=== PATIENT | female | born 1940 ===

== ENCOUNTER 2020-04-14 13:44 | Emergency (ER) | payer OTHER, SELFPAY ==
[2020-04-14 13:45] VITALS: BP 111/66; PULSE 70; RESP 18; TEMP 36.7; O2SAT 96; BMI 24.2
--- NOTE | 2020-04-14 13:46 | CT_ITS ---
WS: [id number] CT ABDOMEN AND PELVIS WITH CONTRAST HISTORY: abd pain TECHNIQUE: Imaging performed of the abdomen and pelvis with IV contrast. Single phase imaging of the abdomen. Coronal and sagittal reformats are submitted. All CT scans at [facility] use at least one of these dose optimization techniques: automated exposure control; mA and/or kV adjustment per patient size (includes targeted exams where dose is matched to clinical indication); or iterativ e reconstruction. IV CONTRAST: Omnipaque 300; 95 mL IV. Oral contrast: No DLP: 791.25 mGy.cm COMPARISON: None available. Lower thorax: Lung bases are clear. Mild enlargement the heart. Small hiatal hernia. Liver/biliary system: Normal size liver. Lobulated cyst in the RIGHT lobe maximum diameter of 17 mm. There are a few additional smaller hypodensities which are probably cysts also. There are additional small cysts which are indeterminant. Mild biliary duct dilatation. Gallbladder: Present but limited visualization due to motion. Pancreas: Atrophied pancreas and poorly visualized. Common bile duct at the pancreatic head measures 6 mm. Spleen: Normal. Adrenal glands: Normal. Right kidney: No renal obstruction. There are multiple stones within the renal pelvis. The largest me asures 1.2 cm in the mid kidney. Left kidney: No hydronephrosis. Multiple nonobstructing stones in the lower pole. Aorta: Mild atherosclerosis. Lymphadenopathy: None. Free fluid: No free fluid. GI tract: Diffuse fecal retention and constipation. No obstructive pattern. Abdominal wall: Unremarkable abdominal wall. No hernia. Pelvis: Well-distended urinary bladder. Uterus is not identified. Bones: Large sacral cysts causing erosion of the foramina and widening. Diffuse osteopenia. CT/CT abdomen pelvis w con* [id number] IMPRESSION: 1. Study is limited by motion artifact and artifact through the abdomen by the patient's arms. 2. Mild intrahepatic duct dilatation of uncertain etiology. No pancreatic head mass identified. 3. Bilateral nonobstructing renal calcifications. 4. Atherosclerosis aorta. 5. Cardiomegaly. 6. Constipation with no free air or ascites.
--- NOTE | 2020-04-14 13:46 | ECG_ITS ---
Measurements Intervals [place] Rate: 68 P: 64 [place]: 158 QRS: 4 QRSD: 86 T: 54 QT: 398 QTc: 424 SINUS RHYTHM LOW QRS VOLTAGE IN PRECORDIAL LEADS [QRS DEFLECTION < 1.0 mV IN CHEST LEADS] POSSIBLE ANTERIOR MYOCARDIAL INFARCTION , OF INDETERMINATE AGE [30 ms Q WAVE IN V3/V4, OR R < 0.2 mV IN V4] Compared to ECG 12/01/2017 02:26:53 Low QRS voltage now present Myocardial infarct finding still present Electronically Signed On 04-14-2020 19:29:01 CDT by Jaime Stearns M.D. [email or web address]
--- NOTE | 2020-04-14 13:54 | W.ED.GENADLT ---
HPI - General Adult General: Chief complaint: Airway/Esophagus Foreign Body Stated complaint: POST CHOKING Time Seen by Provider: 04/14/20 13:44 History of Present Illness: HPI narrative: 79-year-old male comes [facility] from the [facility] she choked on a piece of watermelon Heimlich maneuver chest percussion was applied they were able to successfully dislodge the watermelon and she has been breathing fine since sats in the upper 90s heart rate normal blood pressure initially per EMS was soft but improved by the time she arrived here to 111/16. She is contractured and unresponsive to anything but very loud verbal stimuli she is not conscious of person place or thing. She has a history of Lewy body disease has severe contractures of her left arm and of her feet as well. She has a scleroderma-like facial appearance. She is not able to give any history is all obtained from [facility] and EMS reports. Onset (ago): minute(s) Relieving factors: none Exacerbating factors: none Associated symptoms: Reports no associated symptoms Review of Systems General: Reports: ROS unobtainable due to medical condition and ROS unobtainable due to mental status PFS ED PFSH: Medical History Lewy body disease Osteoporosis Parkinson's disease Social History Smoking and tobacco status: unknown if ever smoked Physical Exam HENMT: COMMON NORMALS: normocephalic, atraumatic, hearing grossly normal bilaterally and external ears normal HEAD & SCALP: normocephalic and atraumatic EXTERNAL EAR: Yes external ears normal Eye: COMMON NORMALS: Equal, round and reactive pupils present, conjunctivae normal and no scleral icterus CONJUNCTIVA: Yes conjunctivae normal PUPIL: Yes Equal, round and reactive pupils present Neck/C-Spine: COMMON NORMALS: no lymphadenopathy, supple and no JVD Lymph: LYMPHATIC: no lymphadenopathy noted and no lymphedema noted Resp: COMMON NORMALS: normal respiratory effort, No retractions, No use of accessory muscles and clear to auscultation bilaterally AUSCULTATION: clear to auscultation bilaterally Cardio: COMMON NORMALS: no JVD, regular rate, regular rhythm and No murmurs present (Cardio) RATE: regular rate RHYTHM: regular rhythm GI: COMMON NORMALS: Soft to palpation and No hepatosplenomegaly present AUSCULTATION: Yes normoactive bowel sounds PALPATION: Yes Soft to palpation, No Tenderness to palpation present (GI), No Guarding due to palpation present (GI) and Yes No hepatosplenomegaly present Extremity: COMMON NORMALS: normal to inspection, capillary refill normal, no clubbing, cyanosis or edema, no calf tenderness and no pedal edema Skin: COMMON NORMALS: no rashes or lesions noted GENERAL SKIN EXAM: no rashes or lesions noted Course Vital Signs: Vital signs: Vital Signs Temperature 98.0 F 04/14/20 13:45 Pulse Rate 70 04/14/20 15:30 Respiratory Rate 14 04/14/20 15:30 Blood Pressure 121/67 04/14/20 15:30 Pulse Oximetry 97 04/14/20 15:30 MDM - General Adult MDM Narrative: Medical decision making narrative: Findings reviewed. On recheck in the records she is actually on hospice. There is no sign of aspiration the CT is fine labs are unremarkable really nothing to admit her for at this point will go and discharge her back to the [facility]. Lab Data: Labs: Lab Results 04/14/20 04/14/20 Range/Units 14:00 14:00 WBC 6.2 (4.0-10.0) 10^3/ uL RBC 4.01 L (4.1-5.3) 10^6/u L Hgb 12.4 (11.5-15.3) g/dL Hct 39.1 (37.0-47.0) % MCV 97.5 (81-99) fL MCH 30.9 (28.0-34.0) pg MCHC 31.7 (30.0-36.0) g/dL RDW 13.2 (12.1-15.1) % Plt Count 272 (130-400) 10^3/c mm MPV 10.5 H (7.4-10.4) fL Neut % (Auto) 66.4 % Lymph % (Auto) 20.6 % [place] % (Auto) 8.2 % Eos % (Auto) 3.9 % Baso % (Auto) 0.6 % Neut # (Auto) 4.1 (1.8-7.7) 10^3/u L Lymph # (Auto) 1.3 (0.8-4.8) 10^3/u L [place] # (Auto) 0.5 (0.2-0.9) 10^3/u L Eos # (Auto) 0.2 (0.0-0.8) 10^3/u L Baso # (Auto) 0.0 (0.0-0.1) 10^3/u L Nucleated RBC % (a uto) 0 % Nucleated RBCs # 0.0 /100WBC Sodium 141 (136-145) mmol/L Potassium 4.5 (3.5-5.1) mmol/L Chloride 104 (98-107) mmol/L Carbon Dioxide 25 (22-29) mmol/L Anion Gap 16.5 (5-19) BUN 22 (8-23) mg/dL Creatinine 0.6 (0.5-0.9) mg/dL Glucose 116 H (65-115) mg/dL Calculated Osmolal ity 290 (285-295) mOsm/k g Calcium 10.3 (8.5-10.5) mg/dL Total Bilirubin 0.5 (0.15-1.2) mg/dL AST 19 (0-32) U/L ALT 13 (0-33) U/L Alkaline Phosphata se 74 (35-105) IU/L Total Protein 6.6 (6.6-8.7) g/dL Albumin 3.8 (3.5-5.2) g/dL Globulin 2.8 (1.3-4.6) g/dL Discharge Plan Discharge Patient Disposition: er [facility] Clinical Impression: Lewy body disease, Parkinson's disease, Osteoporosis Condition: Stable Referrals: Chavez Bella MD [Primary Care Provider] - Discharge Diet: Usual diet Discharge Activity: Resume usual activity Discharge Date/Time: 04/14/20 17:16 Coding Level of Care Code ED [facility] for [facility] Fwd Exam Comprehensive
--- NOTE | 2020-04-14 13:55 | XR_ITS ---
WS: [id number] PORTABLE CHEST HISTORY: dyspnea/cough COMPARISON: None available. Lungs are clear and well expanded. No pleural effusion or pneumothorax. Cardiac size: Normal. Mediastinum/Aorta: Normal mediastinum. Osteopenia. Single anchor LEFT humeral head. XR/XR chest 1V portable [id number] IMPRESSION: Unremarkable portable chest.
[2020-04-14 14:11] LABS: Basophils % 0.6 %; Eosinophils # 0.2 10^3/uL (0.0-0.8); Eosinophils % 3.9 %; Hematocrit 39.1 % (37.0-47.0); Hemoglobin 12.4 g/dL (11.5-15.3); Lymphocytes # 1.3 10^3/uL (0.8-4.8); Lymphocytes % 20.6 %; Mean Corpuscular HGB Conc 31.7 g/dL (30.0-36.0); Mean Corpuscular Hemoglobin 30.9 pg (28.0-34.0); Mean Corpuscular Volume 97.5 fL (81-99); Mean Platelet Volume 10.5 fL (7.4-10.4); Monocytes # 0.5 10^3/uL (0.2-0.9); Monocytes % 8.2 %; Neutrophils # 4.1 10^3/uL (1.8-7.7); Neutrophils % 66.4 %; Nucleated Red Blood Cells % 0 %; Platelet Count 272 10^3/cmm (130-400); Red Blood Count 4.01 10^6/uL (4.1-5.3); Red Cell Distribution Width 13.2 % (12.1-15.1); White Blood Count 6.2 10^3/uL (4.0-10.0)
[2020-04-14 14:26] LABS: Alanine Aminotransferase 13 U/L (0-33); Albumin Level 3.8 g/dL (3.5-5.2); Alkaline Phosphatase 74 IU/L (35-105); Anion Gap 16.5 (5-19); Aspartate Amino Transferase 19 U/L (0-32); Blood Urea Nitrogen 22 mg/dL (8-23); Calcium 10.3 mg/dL (8.5-10.5); Carbon Dioxide 25 mmol/L (22-29); Chloride 104 mmol/L (98-107); Globulin 2.8 g/dL (1.3-4.6); Glucose 116 mg/dL (65-115); Osmolality Calculated 290 mOsm/kg (285-295); Potassium 4.5 mmol/L (3.5-5.1); Sodium 141 mmol/L (136-145); Total Bilirubin 0.5 mg/dL (0.15-1.2); Total Protein 6.6 g/dL (6.6-8.7)
[2020-04-14] MEDS: iohexol 300 mg/mL 100 mL Btl IV (15:16)
[2020-04-14 15:30] VITALS: BP 121/67; PULSE 70; RESP 14; O2SAT 97
--- NOTE | 2020-04-14 16:38 | PC.NURSE ---
Read and agree with assessment
== END 2020-04-14 17:16 ==
PROVIDERS: Emergency Provider Family Medicine; PCP Family Medicine
DX: G31.83 Neurocognitive disorder with Lewy bodies (principal); F02.80 Dementia in other diseases classified elsewhere, unspecified severity, without behavioral disturbance, psychotic disturbance, mood disturbance, and anxiety; G20 Parkinson's disease; M81.0 Age-related osteoporosis without current pathological fracture
CPT/HCPCS: 12345; 36415; 71045; 74177; 80053; 85025; 93005; 99282; 99284; Q9967